=== PATIENT | male | born 1980 | race Asian ===

== ENCOUNTER 2017-06-24 09:18 | Day surgery (SDC) | payer MEDICAID ==
[~2017-06-24] VITALS: Ht 167.6 cm; Wt 53.5 kg
[2017-06-24] MEDS ORDERED: METOCLOPRAMIDE HCL 10 MG/2 ML VIAL IVP ONE (09:19)
[2017-06-24] MEDS ORDERED: LR 1,000 ML IV.SOLN IV ONE (09:19)
[2017-06-24] MEDS ORDERED: MUPIROCIN 2% TOPICAL OINTMENT 22 GM TP ONE (09:19)
[2017-06-24] MEDS ORDERED: EPINEPHrine 1 MG/ML AMP IVP ONE (09:19)
[2017-06-24] MEDS ORDERED: NS 50 ML BAG IV ONE (09:19)
[2017-06-24] MEDS ORDERED: GLYCOPYRROLATE 0.2 MG/ML VIAL IJ ONE (09:19)
[2017-06-24] MEDS ORDERED: NS IRRIG SOLN 1000 ML IR ONE (09:19)
[2017-06-24] MEDS ORDERED: fentaNYL CITRATE/PF 100 MCG/2 ML AMP IVP ONE (09:19)
[2017-06-24] MEDS ORDERED: MIDAZOLAM HCL 5 MG/ML VIAL (VERSED) IV ONE (09:19)
[2017-06-24] MEDS ORDERED: BACITRACIN ZINC 15 GM TOPICAL OINTMENT TP ONE (09:19)
[2017-06-24] MEDS ORDERED: DEXAMETHASONE SOD PHOSPHATE 4 MG/ML VIAL IVP ONE (09:19)
[2017-06-24] MEDS ORDERED: SEVOFLURANE 15 MIN GAS INH ONE (09:19)
[2017-06-24] MEDS ORDERED: PROPOFOL 200MG/ 20ML VIAL (DIPRIVAN) IV ONE (09:19)
[2017-06-24] MEDS ORDERED: LIDOCAINE/EPI 1% 1:100000 20 ML VIAL INJ ONE (09:19)
[2017-06-24] MEDS ORDERED: WATER FOR IRRIGATION,STERILE 1,000 ML IRRIG.SOLN IR ONE (09:19)
[2017-06-24] MEDS ORDERED: ROCURONIUM BROMIDE 10 MG/ML (ZEMURON) IV ONE (09:19)
[2017-06-24] MEDS ORDERED: OXYMETAZOLINE HCL 0.05% NASAL SPRAY NS ONE (09:19)
[2017-06-24] MEDS ORDERED: LR 1,000 ML IV ONE (13:32)
[2017-06-24] MEDS ORDERED: ePHEDrine sulfate 50 MG/ML VIAL IVP PRN (13:45)
[2017-06-24] MEDS ORDERED: DIPHENHYDRAMINE INJ 50 MG/ML VIAL IVP PRN (13:45)
[2017-06-24] MEDS ORDERED: NALOXONE HCL 0.4 MG/ML AMP (NARCAN) IVP PRN (13:45)
[2017-06-24] MEDS ORDERED: fentaNYL CITRATE/PF 100 MCG/2 ML AMP IVP PRN (13:45)
[2017-06-24] MEDS ORDERED: NALBUPHINE HCL 10 MG/ML AMP IVP PRN (13:45)
[2017-06-24] MEDS ORDERED: ONDANSETRON HCL 4 MG/2 ML VIAL IVP PRN ×2 (13:45)
[2017-06-24 15:31] VITALS: BP_SYST 128
== END 2017-06-24 16:12 | disposition home or self-care (01) ==
LOC: SDS 09:18 → SMU 09:19 → SDS 16:12
PROVIDERS: ATTEND Otolaryngology
DX: J34.2 Deviated nasal septum (principal); J32.9 Chronic sinusitis, unspecified; J34.89 Other specified disorders of nose and nasal sinuses
CPT/HCPCS: 30140; 30520; 31240; 31255; 31256; 31296; 31297; 88305; 88311; C1726; J0171; J1100; J2250; J2704; J2765; J3010; J3490; J7120

== ENCOUNTER 2017-06-25 13:26 | Emergency (ER) | payer MEDICAID ==
[~2017-06-25] VITALS: Ht 160 cm; Wt 81.6 kg
[2017-06-25 13:48] VITALS: BP_SYST 120
[2017-06-25 16:14] VITALS: BP_SYST 114
== END 2017-06-25 16:14 | disposition home or self-care (01) ==
LOC: SED 13:26
DX: T81.89XA Other complications of procedures, not elsewhere classified, initial encounter (principal); R06.89 Other abnormalities of breathing; Y83.8 Other surgical procedures as the cause of abnormal reaction of the patient, or of later complication, without mention of misadventure at the time of the procedure
CPT/HCPCS: 99281